=== PATIENT | male | born 1990 | race Asian ===

== ENCOUNTER 2021-05-03 02:37 | Inpatient (IN) | payer BC, OTHER ==
[~2021-05-03] VITALS: Ht 167.6 cm; Wt 88.6 kg
[2021-05-03] MEDS ORDERED: SODIUM CHLORIDE 0.9% 1,000 ML IVB ONE (07:15)
[2021-05-03] MEDS ORDERED: PIPERACILLIN-TAZOB 3.375GM 100 ML IV ONE (07:15)
[2021-05-03] MEDS ORDERED: ONDANSETRON HCL 4 MG/2 ML VIAL IV ONE ×2 (07:15→11:45)
[2021-05-03] MEDS ORDERED: MORPHINE SULFATE 4 MG/ML SYR/VIAL IV ONE (07:15)
[2021-05-03 07:35] LABS: Basophils # (auto) 0.5 10 ^3/uL (0-0.2); Eosinophils # (auto) 0.2 10 ^3/uL (0-0.8); Eosinophils % (auto) 1.2 % (0.0-7.0); Hematocrit 45.8 % (41.0-53.0); Hemoglobin 15.7 g/dL (13.5-17.5); Lymphocytes # (auto) 1.5 10 ^3/uL (0.4-5.4); Lymphocytes % (auto) 9.4 % (10.0-50.0); Mean Corpuscular Hemoglobin 29.2 pg (28.0-32.0); Mean Corpuscular Hgb Conc. 34.3 g/dL (32.0-36.0); Mean Corpuscular Volume 85.1 fL (80.0-100.0); Monocytes # (auto) 0.6 10 ^3/uL (0-1.3); Monocytes % (auto) 3.6 % (0.0-12.0); Neutrophils # (auto) 13.1 10 ^3/uL (1.6-8.6); Neutrophils % (auto) 82.8 % (37.0-80.0); Red Blood Cells 5.39 10^6/uL (4.5-5.90); Red Cell Distribution Width 13.7 % (11.8-14.3); White Blood Cell 15.8 10^3/uL (4.4-10.8)
[2021-05-03 07:59] LABS: Urine Bacteria NONE SEEN /hpf (None Seen); Urine Blood Negative /uL (Negative); Urine WBC 1 /hpf (0 - 3)
[2021-05-03 08:04] LABS: Albumin 4.4 g/dL (3.4-5.0); BUN/Creatinine Ratio 11.5; Bilirubin, Total 0.7 mg/dL (0.2-1.0); Calcium 9.2 mg/dL (8.5-10.1); Total Protein 9.4 g/dL (6.4-8.2)
[2021-05-03 08:42] LABS: INR 1.03 (0.9-1.15)
[2021-05-03] MEDS ORDERED: MORPHINE SULF INJ 2 MG/ML SYRINGE 1ML IV PRN (09:30)
[2021-05-03] MEDS ORDERED: NITROGLYCERIN 0.4 MG SL TAB SL PRN (09:30)
[2021-05-03] MEDS: SODIUM CHLORIDE 0.9% 1,000 ML IV SCH ×3 (09:30→22:46)
[2021-05-03] MEDS ORDERED: ONDANSETRON HCL 4 MG/2 ML VIAL IV PRN (09:30)
[2021-05-03] MEDS ORDERED: fentaNYL CITRATE 100 MCG/2 ML VL ONE (10:15)
[2021-05-03] MEDS ORDERED: MIDAZOLAM HCL 1MG/1ML-2 ML VIAL ONE (10:16)
[2021-05-03] MEDS ORDERED: MEPERIDINE HCL (50 MG/ML) 1 ML VIAL ONE (10:16)
[2021-05-03] MEDS ORDERED: DexAMETHasone SOD PHOS 10MG/1ML VIAL INJ ONE (10:21)
[2021-05-03] MEDS ORDERED: PROPOFOL 10 MG/ML 20 ML IV ONE (10:21)
[2021-05-03] MEDS ORDERED: ceFAZolin 1GM/50ML 50 ML IV ONE (10:29)
[2021-05-03] MEDS ORDERED: POVIDONE IODINE 10 % TOPICAL OINT 30GM TOP ONE (11:10)
[2021-05-03] MEDS ORDERED: BUPIVACAINE W/ EPINEPH 0.5% MPF 30ML VIAL IJ ONE (11:13)
[2021-05-03] MEDS ORDERED: cefTRIAXone 1GM/50ML D5W 50 ML IV ONE (11:45)
[2021-05-03] MEDS ORDERED: HYDROmorphone HCL 2 MG/ML VL IV ONE (11:45)
[2021-05-03] MEDS ORDERED: D5W/SOD CHL 0.45%/KCL 20MEQ 1,000 ML IV ONE (11:45)
[2021-05-03] MEDS ORDERED: metroNIDAZOLE 500MG/100ML 100 ML IV ONE (11:45)
[2021-05-03] MEDS ORDERED: PANTOPRAZOLE 40 MG/10 ML VIAL INJ IV ONE (11:45)
[2021-05-03] MEDS: cefTRIAXone 1GM/50ML D5W 50 ML IV SCH (12:40)
[2021-05-03] MEDS: PANTOPRAZOLE 40 MG/10 ML VIAL INJ IV SCH (12:40)
[2021-05-03 12:50] VITALS: BP 127/76
[2021-05-03] MEDS: metroNIDAZOLE 500MG/100ML 100 ML IV SCH ×2 (14:00→22:39)
[2021-05-03 17:00] VITALS: BP 122/65
[2021-05-03] MEDS: MORPHINE SULF INJ 2 MG/ML SYRINGE 1ML IV PRN (20:18)
[2021-05-03 22:00] VITALS: BP 117/81
[2021-05-04] VITALS (7 sets, daily range): BP systolic 99–122; BP diastolic 50–77
[2021-05-04] MEDS: SODIUM CHLORIDE 0.9% 1,000 ML IV SCH ×3 (00:40→22:48)
[2021-05-04 04:44] LABS: Basophils # (auto) 0.1 10 ^3/uL (0-0.2); Basophils % (auto) 0.4 % (0.0-2.0); Eosinophils # (auto) 0 10 ^3/uL (0-0.8); Hematocrit 41.6 % (41.0-53.0); Hemoglobin 14.5 g/dL (13.5-17.5); Lymphocytes # (auto) 1.6 10 ^3/uL (0.4-5.4); Lymphocytes % (auto) 12.1 % (10.0-50.0); Mean Corpuscular Hemoglobin 29.4 pg (28.0-32.0); Mean Corpuscular Hgb Conc. 34.9 g/dL (32.0-36.0); Mean Corpuscular Volume 84.2 fL (80.0-100.0); Monocytes # (auto) 0.6 10 ^3/uL (0-1.3); Monocytes % (auto) 4.7 % (0.0-12.0); Neutrophils # (auto) 11.1 10 ^3/uL (1.6-8.6); Neutrophils % (auto) 82.8 % (37.0-80.0); Red Blood Cells 4.94 10^6/uL (4.5-5.90); Red Cell Distribution Width 13.4 % (11.8-14.3); White Blood Cell 13.4 10^3/uL (4.4-10.8)
[2021-05-04] MEDS: MORPHINE SULF INJ 2 MG/ML SYRINGE 1ML IV PRN ×3 (05:54→20:11)
[2021-05-04] MEDS: metroNIDAZOLE 500MG/100ML 100 ML IV SCH ×3 (05:54→22:45)
[2021-05-04] MEDS: PANTOPRAZOLE 40 MG/10 ML VIAL INJ IV SCH (09:46)
[2021-05-04] MEDS: cefTRIAXone 1GM/50ML D5W 50 ML IV SCH (09:47)
[2021-05-05] MEDS: SODIUM CHLORIDE 0.9% 1,000 ML IV SCH ×2 (01:30→10:31)
[2021-05-05 05:00] VITALS: BP 119/68
[2021-05-05] MEDS: metroNIDAZOLE 500MG/100ML 100 ML IV SCH ×2 (06:10→13:19)
[2021-05-05 08:10] VITALS: BP 117/65
[2021-05-05 09:00] VITALS: BP 117/65
[2021-05-05] MEDS: PANTOPRAZOLE 40 MG/10 ML VIAL INJ IV SCH (10:31)
[2021-05-05] MEDS: cefTRIAXone 1GM/50ML D5W 50 ML IV SCH (10:31)
[2021-05-05 12:07] VITALS: BP 115/69
[2021-05-05 13:00] VITALS: BP 115/69
== END 2021-05-05 14:35 | disposition home or self-care (01) | DRG 854 ==
LOC: ER 02:37 → WEST WING 09:23 → ER 10:25
PROVIDERS: ADMIT Nurse Practitioner Acute Care; ATTEND Internal Medicine
PROC: 0DTJ4ZZ Resection of Appendix, Percutaneous Endoscopic Approach (ICD-10-PCS; principal; 2021-05-03 10:38)
DX: A41.9 Sepsis, unspecified organism (principal); K35.80 Unspecified acute appendicitis; Z20.822 Contact with and (suspected) exposure to COVID-19; R63.0 Anorexia; Z68.31 Body mass index [BMI] 31.0-31.9, adult; Z80.9 Family history of malignant neoplasm, unspecified; Z86.16 Personal history of COVID-19
CPT/HCPCS: 36415; 71045; 74176; 80053; 81001; 83605; 85025; 85610; 85730; 86850; 86900; 86901; 87040; 87426; 93005; 96361; 96365; 96375; C9113; G0378; J0690; J0696; J1100; J2250; J2405; J2543; J2704; J3490

== ENCOUNTER 2022-01-16 09:17 | Emergency (ER) | payer BC ==
[~2022-01-16] VITALS: Ht 162.6 cm; Wt 81.6 kg
[2022-01-16 10:00] LABS: Urine Bacteria NONE SEEN /hpf (None Seen); Urine Blood Negative /uL (Negative); Urine Mucus FEW (None Seen); Urine Specific Gravity 1.041 (1.001-1.035); Urine WBC 4 /hpf (0 - 3)
[2022-01-16 10:14] LABS: Albumin 4.2 g/dL (3.4-5.0); Calcium 8.5 mg/dL (8.5-10.1); Potassium 3.5 mmol/L (3.5-5.1)
[2022-01-16 10:17] LABS: BUN/Creatinine Ratio 7.6; Basophils # (auto) 0 10 ^3/uL (0-0.2); Basophils % (auto) 0.8 % (0.0-2.0); Bilirubin, Total 0.4 mg/dL (0.2-1.0); Eosinophils # (auto) 0 10 ^3/uL (0-0.8); Lymphocytes # (auto) 1.1 10 ^3/uL (0.4-5.4); Lymphocytes % (auto) 24.5 % (10.0-50.0); Mean Corpuscular Hemoglobin 28.5 pg (28.0-32.0); Mean Corpuscular Hgb Conc. 34.7 g/dL (32.0-36.0); Mean Corpuscular Volume 82.2 fL (80.0-100.0); Monocytes # (auto) 0.3 10 ^3/uL (0-1.3); Monocytes % (auto) 7.2 % (0.0-12.0); Neutrophils # (auto) 3.1 10 ^3/uL (1.6-8.6); Neutrophils % (auto) 67.5 % (37.0-80.0); Nucleated Red Blood Cells % 1.1 %; Red Blood Cells 5.96 10^6/uL (4.5-5.90); Red Cell Distribution Width 12.8 % (11.8-14.3); Total Protein 8.8 g/dL (6.4-8.2); White Blood Cell 4.6 10^3/uL (4.4-10.8)
[2022-01-16] MEDS ORDERED: ONDANSETRON ODT 4 MG TAB PO ONE (11:45)
[2022-01-16 12:37] LABS: Alcohol, Urine < 3.0 mg/dL (0-10); Amphetamine Screen, Urine NEGATIVE (NEGATIVE); Barbiturate Scree,Urine NEGATIVE (NEGATIVE); Benzodiazephine Screen, Urine NEGATIVE (NEGATIVE); Cannabinoid Screen, Urine NEGATIVE (NEGATIVE); Cocaine Screen, Urine NEGATIVE (NEGATIVE); Opiate Scree,Urine NEGATIVE (NEGATIVE); Phencyclidine Screen, Urine NEGATIVE (NEGATIVE)
[2022-01-16] MEDS ORDERED: ONDA-144 SL (13:28)
[2022-01-16] MEDS ORDERED: SODIUM CHLORIDE 0.9% 1,000 ML IV ONE (15:00)
[2022-01-16] MEDS: METOPROLOL TARTRATE 1MG/1ML-5ML VIAL IV SCH ×3 (15:45→15:55)
[2022-01-16 18:08] VITALS: BP 130/84
== END 2022-01-16 18:46 | disposition home or self-care (01) ==
LOC: ER 09:17
DX: K52.9 Noninfective gastroenteritis and colitis, unspecified (principal); E88.89 Other specified metabolic disorders; Z90.49 Acquired absence of other specified parts of digestive tract
CPT/HCPCS: 36415; 74176; 80053; 80307; 81001; 83690; 85025; 93005; 96360; 96361; 99285; J7030; Q0162

== ENCOUNTER 2023-06-15 19:46 | Emergency (ER) | payer BC ==
[~2023-06-15] VITALS: Ht 167.6 cm; Wt 75.0 kg
[~2023-06-15 19:46] MED LIST: ONDA-144 SL
[2023-06-15] MEDS ORDERED: HYDR-4902 PO (20:57)
[2023-06-15 22:03] VITALS: BP 113/88; PULSE 87; RESP 18; TEMP 98.3; O2SAT 98
== END 2023-06-15 22:41 | disposition home or self-care (01) ==
LOC: ER 19:46
DX: S92.415A Nondisplaced fracture of proximal phalanx of left great toe, initial encounter for closed fracture (principal); Z90.49 Acquired absence of other specified parts of digestive tract; W18.39XA Other fall on same level, initial encounter; Y93.89 Activity, other specified; Y92.89 Other specified places as the place of occurrence of the external cause; Y99.8 Other external cause status
CPT/HCPCS: 29515; 73630